=== PATIENT | male | born 1980 | race Caucasian/White ===

== ENCOUNTER 2018-02-02 09:21 | Emergency (ER) | payer SELFPAY ==
--- NOTE | 2018-02-02 10:05 | RAD ---
THREE VIEWS RIGHT SHOULDER: HISTORY: Injury. Pain. COMPARISON: None. FINDINGS: No fracture. No cortical irregularity. No periosteal reaction. No evidence of dislocation. IMPRESSION: Unremarkable right shoulder 3 views. POS: [facility]
== END 2018-02-02 10:22 | disposition home or self-care (01) ==
LOC: SCSER 09:21
DX: S46.911A Strain of unspecified muscle, fascia and tendon at shoulder and upper arm level, right arm, initial encounter (principal); F17.210 Nicotine dependence, cigarettes, uncomplicated; Z71.6 Tobacco abuse counseling; X58.XXXA Exposure to other specified factors, initial encounter; Y93.72 Activity, wrestling
CPT/HCPCS: 99406